=== PATIENT | male | born 1990 | race Caucasian/White ===

== ENCOUNTER 2020-06-05 16:30 | Inpatient (IN) | payer OTHER ==
[2020-06-05] MEDS ORDERED: MENTHOL/PHENOL 1 EACH UD MM PRN (17:52)
[2020-06-05] MEDS ORDERED: MAGNESIUM CITRATE 300 ML BOTTLE PO PRN (17:52)
[2020-06-05] MEDS ORDERED: cloNIDine HCL 0.1 MG TABLET PO PRN (17:52)
[2020-06-05] MEDS ORDERED: BISMUTH SUBSALICYLATE 524 MG/30 ML UD PO PRN (17:52)
[2020-06-05] MEDS ORDERED: NALOXONE HCL 0.4 MG/ML VIAL IM PRN (17:52)
[2020-06-05] MEDS ORDERED: METHADONE HCL 10 MG TABLET (FOR DETOX USE ONLY) PO ONE (17:52)
[2020-06-05] MEDS ORDERED: MAG HYDROX/AL HYDROX/SIMETH 30 ML UNIT-DOSE CUP PO PRN (17:52)
[2020-06-05] MEDS ORDERED: ACETAMINOPHEN 325 MG TABLET (FP) PO PRN ×2 (17:52)
[2020-06-05] MEDS ORDERED: IBUPROFEN 400 MG TABLET (FP) PO PRN (17:52)
[2020-06-05] MEDS ORDERED: chlordiazePOXIDE HCL 25 MG CAPSULE PO ONE (17:52)
[2020-06-05] MEDS ORDERED: chlordiazePOXIDE HCL 25 MG CAPSULE PO PRN (17:52)
[2020-06-05] MEDS ORDERED: MAGNESIUM HYDROX 2400MG/30ML ORAL SUSPENSION 30 ML CUP PO PRN (17:52)
[2020-06-05 18:20] VITALS: BMI 21.5
[2020-06-05] MEDS: THIAMINE HCL 100 MG TABLET (FP) PO SCH (22:30)
[2020-06-05] MEDS: MELATONIN 5 MG TABLETS PO SCH (22:31)
[2020-06-05] MEDS: chlordiazePOXIDE HCL 25 MG CAPSULE PO SCH (22:32)
[2020-06-05] MEDS: CEPHALEXIN MONOHYDRATE 500 MG CAPSULE (UD) PO SCH (22:59)
[2020-06-06] MEDS: chlordiazePOXIDE HCL 25 MG CAPSULE PO SCH ×4 (05:15→22:11)
[2020-06-06] MEDS: CEPHALEXIN MONOHYDRATE 500 MG CAPSULE (UD) PO SCH ×4 (05:16→23:00)
[2020-06-06] MEDS ORDERED: METHADONE HCL 10 MG TABLET (FOR DETOX USE ONLY) ONE (09:37)
[2020-06-06] MEDS ORDERED: METHADONE HCL 5 MG TABLET (FOR DETOX USE ONLY) ONE (09:37)
[2020-06-06] MEDS ORDERED: METHADONE (DETOX) 20 MG, METHADONE (DETOX) 5 MG PO ONE (10:00)
[2020-06-06 10:35] LABS: HEMATOCRIT 34.6 % (35.4-49); HEMOGLOBIN 12.1 GM/dL (11.7-16.9); MCH 30.5 pg (25.7-33.7); MCHC 34.9 g/dl (32.0-35.9); MEAN CELL VOLUME 87.4 fl (80-96); MEAN PLT VOLUME 7.3 fl (7.5-11.1); PLATELET COUNT 316 K/MM3 (134-434); RBC 3.96 M/mm3 (4.00-5.60); WHITE BLOOD COUNT 9.8 K/mm3 (4.0-10.0)
[2020-06-06] MEDS: PRENATAL VITAMINS W/ FOLIC ACID TABLET (FP) PO SCH (10:38)
[2020-06-06 10:39] LABS: CALCIUM 9.1 mg/dL (8.5-10.1)
[2020-06-06 10:40] LABS: ALBUMIN 2.9 g/dl (3.4-5.0)
[2020-06-06] MEDS: NICOTINE POLACRILEX 2 MG GUM BUC PRN ×2 (10:40→15:32)
[2020-06-06] MEDS: NICOTINE 14 MG/24 HOURS TOPICAL PATCH TD SCH (10:40)
[2020-06-06 10:42] LABS: BLOOD UREA NITROGEN 9.7 mg/dL (7-18)
[2020-06-06 10:43] LABS: CREATININE 0.9 mg/dL (0.55-1.3)
[2020-06-06 10:45] LABS: BILIRUBIN,TOTAL 0.3 mg/dL (0.2-1)
[2020-06-06] MEDS: METHOCARBAMOL 500 MG TABLET PO PRN (17:47)
[2020-06-06] MEDS ORDERED: SUVOREXANT 10 MG TABLET PO PRN (22:00)
[2020-06-06] MEDS: THIAMINE HCL 100 MG TABLET (FP) PO SCH (22:13)
[2020-06-06] MEDS: MELATONIN 5 MG TABLETS PO SCH (22:13)
[2020-06-07] MEDS: CEPHALEXIN MONOHYDRATE 500 MG CAPSULE (UD) PO SCH ×2 (05:15→12:27)
[2020-06-07] MEDS: chlordiazePOXIDE HCL 25 MG CAPSULE PO SCH ×2 (05:15→10:36)
[2020-06-07] MEDS: NICOTINE POLACRILEX 2 MG GUM BUC PRN ×2 (05:22→10:38)
[2020-06-07] MEDS ORDERED: METHADONE HCL 10 MG TABLET (FOR DETOX USE ONLY) PO ONE (10:00)
[2020-06-07] MEDS: PRENATAL VITAMINS W/ FOLIC ACID TABLET (FP) PO SCH (10:34)
[2020-06-07] MEDS: NICOTINE 14 MG/24 HOURS TOPICAL PATCH TD SCH (10:35)
[2020-06-07] MEDS: METHOCARBAMOL 500 MG TABLET PO PRN (10:36)
[2020-06-07 12:48] VITALS: BP 102/62; PULSE 96; TEMP 97.8
[2020-06-08] MEDS ORDERED: chlordiazePOXIDE HCL 10 MG CAPSULE PO PRN
[2020-06-08] MEDS ORDERED: chlordiazePOXIDE HCL 10 MG CAPSULE PO SCH (05:00)
[2020-06-08] MEDS ORDERED: METHADONE (DETOX) 10 MG, METHADONE (DETOX) 5 MG PO ONE (10:00)
[2020-06-09] MEDS ORDERED: chlordiazePOXIDE HCL 10 MG CAPSULE PO SCH (05:00)
[2020-06-09] MEDS ORDERED: METHADONE HCL 10 MG TABLET (FOR DETOX USE ONLY) PO ONE (10:00)
[2020-06-10] MEDS ORDERED: chlordiazePOXIDE HCL 10 MG CAPSULE PO ONE (05:00)
[2020-06-10] MEDS ORDERED: METHADONE HCL 5 MG TABLET (FOR DETOX USE ONLY) PO ONE (06:00)
== END 2020-06-07 12:38 | disposition left against medical advice (07) | DRG 770 ==
LOC: YASAS 16:30 → Y3N 18:28
PROVIDERS: ADMIT Allergy & Immunology; ATTEND Allergy & Immunology
PROC: HZ2ZZZZ Detoxification Services for Substance Abuse Treatment (ICD-10-PCS; principal; 2020-06-05)
DX: F11.23 Opioid dependence with withdrawal (principal); F13.20 Sedative, hypnotic or anxiolytic dependence, uncomplicated; F14.20 Cocaine dependence, uncomplicated; F15.20 Other stimulant dependence, uncomplicated; F17.210 Nicotine dependence, cigarettes, uncomplicated; F19.280 Other psychoactive substance dependence with psychoactive substance-induced anxiety disorder; F19.282 Other psychoactive substance dependence with psychoactive substance-induced sleep disorder; F41.8 Other specified anxiety disorders; G47.00 Insomnia, unspecified; B18.2 Chronic viral hepatitis C; L02.512 Cutaneous abscess of left hand; L02.414 Cutaneous abscess of left upper limb; M54.5 Low back pain
CPT/HCPCS: 36415; 80053; 85027; 86780; 93005; 93010; C9803; U0003; U0005